=== PATIENT | female | born 1980 | race Caucasian/White ===

== ENCOUNTER 2023-08-13 14:03 | Emergency (ER) | payer BC ==
[2023-08-13 14:27] VITALS: RESP 16; BMI 32.8
[2023-08-13] MEDS ORDERED: ACETAMINOPHEN 325 MG TABLET (FP) ONE (15:54)
[2023-08-13] MEDS: SODIUM CHLORIDE 0.9% 1000 ML INFUS.BAG IV ONE (15:58)
[2023-08-13] MEDS: ACETAMINOPHEN 325 MG TABLET (FP) PO ONE (15:59)
[2023-08-13 16:03] LABS: INR 1.07 (0.83-1.09); PROTHROMBIN TIME (PATIENT) 12.4 SEC (9.7-13.0)
[2023-08-13 16:05] LABS: ACTIVATED PTT 29.7 SECONDS (25.2-36.5)
[2023-08-13 16:09] LABS: URINE APPEARANCE CLEAR; URINE COLOR YELLOW; URINE PROTEIN 3+ (NEGATIVE)
[2023-08-13 16:10] LABS: URINE BILIRUBIN NEGATIVE (NEGATIVE); URINE GLUCOSE (UA) NEGATIVE (NEGATIVE); URINE KETONE NEGATIVE (NEGATIVE); URINE LEUK ESTERASE NEGATIVE (NEGATIVE); URINE NITRITE NEGATIVE (NEGATIVE); URINE UROBILINOGEN 0.2 (0.2-1.0)
[2023-08-13 16:15] LABS: AMORP URATES FEW /hpf (NONE SEEN); EPITHELIAL CELLS 0-5 /hpf
[2023-08-13 16:18] LABS: HEMATOCRIT 38.7 % (32.4-45.2); HEMOGLOBIN 12.8 G/dL (10.7-15.3); MCH 31.3 pg (25.7-33.7); MEAN CELL VOLUME 94.6 fl (80-96); RBC 4.09 10^6/uL (3.60-5.2); RDW 14.3 % (11.6-15.6); WHITE BLOOD COUNT 15.5 10^3/uL (4.0-10.8)
[2023-08-13 16:27] LABS: CREATININE 0.9 mg/dl (0.6-1.3)
[2023-08-13 16:28] LABS: CALCIUM 8.8 mg/dl (8.5-10.1); POTASSIUM 3.6 mmol/L (3.5-5.1)
[2023-08-13 16:29] LABS: ALBUMIN 4.2 g/dl (3.4-5.0); BILIRUBIN,TOTAL 0.5 mg/dl (0.2-1); MAGNESIUM 1.8 mg/dL (1.8-2.4); TOT PROT 7.7 g/dl (6.4-8.2)
[2023-08-13 17:24] LABS: PLATELET ESTIMATE ADEQUATE
[2023-08-13 22:22] VITALS: BP 144/87; PULSE 76; TEMP 99.1
[2023-08-13] MEDS ORDERED: KETOROLAC TROMETHAMINE 30 MG/1 ML VIAL ONE (22:44)
[2023-08-13] MEDS: KETOROLAC TROMETHAMINE 15 MG/ML VIAL IVPUSH ONE (22:54)
== END 2023-08-13 23:37 | disposition home or self-care (01) ==
LOC: FER 14:03
PROC: 3E0303Z Introduction of Anti-inflammatory into Peripheral Vein, Open Approach (ICD-10-PCS; principal; 2023-08-13)
DX: R10.811 Right upper quadrant abdominal tenderness (principal); M54.9 Dorsalgia, unspecified; R51.9 Headache, unspecified; R07.89 Other chest pain; R55 Syncope and collapse; R31.9 Hematuria, unspecified; Z20.822 Contact with and (suspected) exposure to COVID-19
CPT/HCPCS: 0241U-QW; 36415; 70450-TC; 70486-TC; 71046-TC-FY; 71101-TC-RT-FY; 74177-TC; 80053; 81003; 81015; 83690; 83735; 84484; 84703; 85027; 85610; 85730; 86850; 86900; 86901; 87086; 93005; 99285-25